=== PATIENT | female | born 1995 | race Caucasian/White ===

== ENCOUNTER 2018-07-30 11:19 | Inpatient (IN) | payer BC, OTHER ==
[2018-07-30] MEDS ORDERED: TUBERCULIN PPD 5 TU/0.1ML SYRINGE (IN PATIENT USE ONLY) ID ONE ×2 (11:58→12:00)
[2018-07-30] MEDS ORDERED: AMPICILLIN - 2 GM in SODIUM CHLORIDE 100 ML IVPB ONE (12:00)
[2018-07-30 12:09] VITALS: BMI 30.1
[2018-07-30] MEDS ORDERED: BUTORPHANOL TARTRATE 1 MG/ML VIAL ONE ×2 (12:43)
[2018-07-30] MEDS ORDERED: PROMETHAZINE HCL 25 MG/1 ML VIAL ONE (12:43)
[2018-07-30 13:00] LABS: BASO % 0.2 % (0-2.0); EOS % 0.3 % (0-4.5); HEMATOCRIT 37.6 % (32.4-45.2); HEMOGLOBIN 11.9 GM/dL (10.7-15.3); LYMPH % 11.7 % (8-40); MCH 27.7 pg (25.7-33.7); MCHC 31.6 g/dl (32.0-36.0); MEAN CELL VOLUME 87.4 fl (80-96); MEAN PLT VOLUME 8.8 fl (7.5-11.1); MONO % 7.1 % (3.8-10.2); NEUT % 80.7 % (42.8-82.8); PLATELET COUNT 242 K/MM3 (134-434); RDW 14.9 % (11.6-15.6); WHITE BLOOD COUNT 12.2 K/mm3 (4.0-10.0)
[2018-07-30] MEDS ORDERED: BUTORPHANOL TARTRATE 1 MG/ML VIAL IVPB ONE (13:00)
[2018-07-30] MEDS ORDERED: PROMETHAZINE HCL 25 MG/1 ML VIAL IVPB ONE (13:00)
[2018-07-30 13:11] LABS: INR 0.93 (0.83-1.09)
[2018-07-30 13:14] LABS: ACTIVATED PTT 29.3 SECONDS (25.2-36.5)
[2018-07-30 13:32] LABS: ANION GAP 9 MMOL/L (8-16); BLOOD UREA NITROGEN 6 mg/dL (7-18); CALCIUM 8.7 mg/dL (8.5-10.1); CHLORIDE 102 mmol/L (98-107); CO2 25 mmol/L (21-32); CREATININE 0.6 mg/dL (0.55-1.3); GLUCOSE,RANDOM 75 mg/dL (74-106); POTASSIUM 3.9 mmol/L (3.5-5.1); SODIUM 137 mmol/L (136-145)
[2018-07-30] MEDS ORDERED: OXYTOCIN 20 UNITS in 0.9% NS 20 UNIT/1,000 ML INFUS.BAG IV ONE ×2 (14:21→17:29)
[2018-07-30] MEDS ORDERED: FENTANYL/BUPIVACAINE/NS/PF - PCEA - 50 ML DISP.SYRIN EP ONE (14:38)
[2018-07-30] MEDS ORDERED: BUPIVACAINE HCL/PF 0.25% (2.5MG/ML) 10 ML VIAL ONE (14:49)
[2018-07-30] MEDS ORDERED: NALOXONE HCL 0.4 MG/ML VIAL IVPUSH PRN (15:12)
--- NOTE | 2018-07-30 15:14 | PN ---
Progress Note (short form) - Note Progress Note: 215 pm cx 6 cm, 100 vx -2 , mi bulging, fhr cat 1, irregular contraction, arom, clear pitocin discussed, rba explained
[2018-07-30] MEDS ORDERED: ELECTROLYTE-148 SOLN 1,000 ML IV SCH (15:15)
[2018-07-30] MEDS ORDERED: FENTANYL/BUPIVACAINE/NS/PF - PCEA - 50 ML DISP.SYRIN EP SCH (15:15)
[2018-07-30] MEDS ORDERED: OXYTOCIN 30 UNITS in 0.9% NS 30 UNIT/500 ML INFUS.BAG IVPB SCH (15:15)
[2018-07-30] MEDS ORDERED: AMPICILLIN SODIUM 1 GM VIAL ONE ×2 (15:52)
[2018-07-30] MEDS ORDERED: AMPICILLIN - 1 GM in SODIUM CHLORIDE 100 ML IVPB SCH (16:00)
--- NOTE | 2018-07-30 16:33 | HP ---
Past Medical History - Primary Care Physician PCP:: Neville Bullard - Admission Chief Complaint: 39 weeks, labor History of Present Illness: 23 yo f 39 weeks in labor , cx 4cm, 80 vx -2 mi, fhr cat 1. irregular contraction, GBS positve History Source: Patient Limitations to Obtaining History: No Limitations - Past Medical History ...: 1 ...LMP: 10/29/17 ... Weeks Gestation by Dates: 39.1 ...EDC by Dates: 08/05/18 - Past Surgical History Hx Myomectomy: No Hx Transabdominal Cerclage: No - Smoking History Smoking history: Never smoked Have you smoked in the past 12 months: No - Alcohol/Substance Use Hx Alcohol Use: No - Social History Usual Living Arrangement: Yes: With Spouse History of Recent Travel: No Home Medications - Allergies Allergies/Adverse Reactions: Allergies Allergy/AdvReac Type Severity Reaction Status Date / Time No Known Allergies Allergy Verified 07/30/18 12:14 - Home Medications Home Medications: Ambulatory Orders Prenat 115/Iron Fum/Folic/Dss [ 19 Tablet] 1 tab PO DAILY 07/29/18 Review of Systems - Review of Systems Constitutional: reports: No Symptoms Eyes: reports: No Symptoms HENT: reports: No Symptoms Neck: reports: No Symptoms Cardiovascular: reports: No Symptoms Respiratory: reports: No Symptoms Gastrointestinal: reports: No Symptoms Genitourinary: reports: No Symptoms Breasts: reports: No Symptoms Reported Musculoskeletal: reports: No Symptoms Integumentary: reports: No Symptoms Neurological: reports: No Symptoms Endocrine: reports: No Symptoms Hematology/Lymphatic: reports: No Symptoms Psychiatric: reports: No Symptoms Physical Exam - Maternity Vital Signs: Vital Signs Temperature 98.4 F 07/30/18 16:00 Pulse Rate 62 07/30/18 16:00 Respiratory Rate 18 07/30/18 16:00 Blood Pressure 99/56 L 07/30/18 16:00 O2 Sat by Pulse Oximetry (%) 99 07/30/18 15:15 Constitutional: Yes: Well Nourished, No Distress, Calm Eyes: Yes: WNL, Conjunctiva Clear, EOM Intact HENT: Yes: WNL, Atraumatic, Normocephalic Neck: Yes: WNL, Supple, Trachea Midline Cardiovascular: Yes: WNL, Regular Rate and Rhythm Breast(s): Yes: WNL - Abdominal Exam/OB Fundal Height: 40 Number of Fetuses: Single Presentation: Vertex Contractions: Yes Regularity: Irregular Intensity: Mod/Strong Monitor Mode: External Heart Rate Location: [facility] Category: I Accelerations: Uniform Decelerations: None - Vaginal Exam/OB Vaginal Bleediing: No Speculum Exam: No Dilatation (cm): 4 cm Effacement (%): 80 Amniotic Membrane Status: Bulging Presentation: Vertex/Position Station: -2 - Physical Exam Musculoskeletal: Yes: WNL Extremities: Yes: WNL Edema: Yes Edema: LLE: Trace, RLE: Trace Deep Tendon Reflex Grade: Normal +2 ...Motor Strength: WNL Psychiatric: Yes: WNL - Labs Lab Results: CBC, BMP 07/30/18 12:35 07/30/18 12:35 Hemorrhage Risk Assessment - Risk Factors Medium Risk Factors: Yes: None High Risk Factors: Yes: None Risk Score: 1 Risk Level: Medium Risk Problem List - Problems (1) 39 weeks gestation of Code(s): Z3A.39 - 39 WEEKS GESTATION OF (2) Labor established Code(s): URL9214 - Assessment/Plan admit , fhm, pain management
[2018-07-30] MEDS ORDERED: LIDOCAINE HCL 1% PRESERVATIVE FREE - 30ML VIAL ONE (17:37)
[2018-07-30] MEDS ORDERED: BENZOCAINE 28 GM HEMORRHOIDAL OINTMENT TP PRN (18:19)
[2018-07-30] MEDS ORDERED: BISACODYL 10 MG SUPP.RECT RC PRN (18:19)
[2018-07-30] MEDS ORDERED: WITCH HAZEL 50% (TUCKS) 40 PAD/JAR PAD TP PRN (18:19)
[2018-07-30] MEDS ORDERED: METHYLERGONOVINE MALEATE 0.2 MG/1 ML AMP IM PRN (18:19)
[2018-07-30] MEDS ORDERED: OXYTOCIN 20 UNITS in 0.9% NS 20 UNIT/1,000 ML INFUS.BAG IV SCH (18:30)
[2018-07-30] MEDS ORDERED: D5W-LR W/ 20 UNITS OXYTOCIN 1,000 ML IV SCH (18:30)
[2018-07-31] MEDS: FERROUS SO4 325 MG TABLET (FP) PO SCH ×2 (08:25→17:20)
[2018-07-31 08:27] LABS: BASO % 0.3 % (0-2.0); EOS % 0.6 % (0-4.5); HEMOGLOBIN 10.8 GM/dL (10.7-15.3); LYMPH % 12.4 % (8-40); MCH 27.8 pg (25.7-33.7); MCHC 31.8 g/dl (32.0-36.0); MEAN CELL VOLUME 87.4 fl (80-96); MEAN PLT VOLUME 8.9 fl (7.5-11.1); NEUT % 78.7 % (42.8-82.8); PLATELET COUNT 214 K/MM3 (134-434); RBC 3.89 M/mm3 (3.60-5.2); RDW 14.7 % (11.6-15.6); WHITE BLOOD COUNT 14.2 K/mm3 (4.0-10.0)
[2018-07-31] MEDS: PRENATAL VITAMINS W/ FOLIC ACID TABLET (FP) PO SCH (09:15)
[2018-07-31] MEDS: BENZOCAINE 20% 57 GM BOTTLE TP PRN (09:16)
[2018-07-31] MEDS: IBUPROFEN 600 MG TABLET (FP) PO PRN ×3 (10:11→23:03)
[2018-07-31] MEDS: ACETAMINOPHEN 325 MG TABLET (FP) PO PRN ×3 (10:12→23:02)
--- NOTE | 2018-07-31 11:16 | PN ---
Progress Note (short form) - Note Progress Note: ppd 1 doing well, ambulating, no excess vaginal bleeding CBC, BMP 07/31/18 07:00 07/30/18 12:35 Last Vital Signs Temp Pulse Resp BP Pulse Ox 98.7 F 89 18 116/70 99 07/31/18 06:00 07/31/18 06:00 07/31/18 06:00 07/31/18 06:00 07/30/18 17:30 abdomen soft, non tender , no cva uterus firm, non tender lochia mild no calf tenderness plan ambulate , plan for d/c home in am Problem List - Problems (1) 39 weeks gestation of Code(s): Z3A.39 - 39 WEEKS GESTATION OF (2) Labor established Code(s): XML5262 -
[2018-07-31] MEDS ORDERED: SENNOSIDES/DOCUSATE COMBO (SENNA PLUS) TABLET (UD) PO PRN (22:00)
[2018-08-01] MEDS: FERROUS SO4 325 MG TABLET (FP) PO SCH (07:56)
[2018-08-01 08:49] VITALS: BP 112/54; PULSE 66; TEMP 98.4
[2018-08-01] MEDS: PRENATAL VITAMINS W/ FOLIC ACID TABLET (FP) PO SCH (09:15)
[2018-08-01] MEDS: BENZOCAINE 20% 57 GM BOTTLE TP PRN (10:52)
--- NOTE | 2018-08-01 12:39 | PN ---
Post Progress Note - Subjective Subjective: No complains Post Day: 1 Type of Delivery: Vital Signs: Vital Signs Temperature 98.4 F 08/01/18 08:47 Pulse Rate 66 08/01/18 08:47 Respiratory Rate 20 08/01/18 08:47 Blood Pressure 112/54 L 08/01/18 08:47 O2 Sat by Pulse Oximetry (%) 99 07/30/18 17:30 Breast Exam: Yes: Soft Uterus: Yes: Fundus Firm Abdomen/GI: Yes: Abdomen soft, Passing flatus Lochia: Yes: Rubra Lochia, amount: Small Extremities: Yes: Calves non-tender Perineum: Yes: Laceration Activity: Ambulating - Labs Labs: CBC WBC 14.2 K/mm3 (4.0-10.0) H 07/31/18 07:00 RBC 3.89 M/mm3 (3.60-5.2) 07/31/18 07:00 Hgb 10.8 GM/dL (10.7-15.3) 07/31/18 07:00 Hct 34.0 % (32.4-45.2) 07/31/18 07:00 MCV 87.4 fl (80-96) 07/31/18 07:00 MCH 27.8 pg (25.7-33.7) 07/31/18 07:00 MCHC 31.8 g/dl (32.0-36.0) L 07/31/18 07:00 RDW 14.7 % (11.6-15.6) 07/31/18 07:00 Plt Count 214 K/MM3 (134-434) 07/31/18 07:00 MPV 8.9 fl (7.5-11.1) 07/31/18 07:00 Absolute Neuts (auto) 11.1 K/mm3 (1.5-8.0) H 07/31/18 07:00 Neutrophils % 78.7 % (42.8-82.8) 07/31/18 07:00 Lymphocytes % 12.4 % (8-40) 07/31/18 07:00 Monocytes % 8.0 % (3.8-10.2) 07/31/18 07:00 Eosinophils % 0.6 % (0-4.5) D 07/31/18 07:00 Basophils % 0.3 % (0-2.0) 07/31/18 07:00 Nucleated RBC % 0 % (0-0) 07/31/18 07:00 Assessment/Plan 23yo P1 s/p PPD # 2 1. Doing well 2. VSS, Afebrile, no evidance of acute blood loss 3. Rh positive status, no rhogam indicated. 4. Encourage ambulation 5. Continue oral pain medication 6. Discharge home today 7. Instructed on Pelvic rest for 6weeks 8. Return to office in 4-6 weeks
[2018-08-01 13:51] LABS: BASO % 0.2 % (0-2.0); EOS % 1.5 % (0-4.5); HEMATOCRIT 33.1 % (32.4-45.2); HEMOGLOBIN 11.5 GM/dL (10.7-15.3); MCH 29.9 pg (25.7-33.7); MCHC 34.7 g/dl (32.0-36.0); MEAN CELL VOLUME 86.3 fl (80-96); MEAN PLT VOLUME 9.4 fl (7.5-11.1); MONO % 5.8 % (3.8-10.2); NEUT % 72.5 % (42.8-82.8); PLATELET COUNT 240 K/MM3 (134-434); RBC 3.83 M/mm3 (3.60-5.2); RDW 14.8 % (11.6-15.6); WHITE BLOOD COUNT 11.5 K/mm3 (4.0-10.0)
--- NOTE | 2018-08-01 20:14 | DS ---
Physical Exam-[facility] Vital Signs: Vital Signs Temperature 98.4 F 08/01/18 08:20 Pulse Rate 66 08/01/18 08:20 Respiratory Rate 20 08/01/18 08:20 Blood Pressure 112/54 L 08/01/18 08:20 O2 Sat by Pulse Oximetry (%) 99 07/30/18 17:30 Constitutional: Yes: Well Nourished, No Distress, Calm Eyes: Yes: WNL, Conjunctiva Clear, EOM Intact HENT: Yes: WNL, Atraumatic, Normocephalic Neck: Yes: WNL, Supple, Trachea Midline Cardiovascular: Yes: WNL, Regular Rate and Rhythm Respiratory: Yes: WNL, Regular, CTA Bilaterally Gastrointestinal: Yes: WNL, Normal Bowel Sounds, Soft Pelvis: Yes: WNL External Genitalia: Yes: Normal Vaginal Exam: Yes: Normal ....Post : Yes: Uterus firm, Uterus non-tender Breast(s): Yes: WNL Musculoskeletal: Yes: WNL Extremities: Yes: WNL Integumentary: Yes: WNL Wound/Incision: Yes: Clean/Dry, Well Approximated Neurological: Yes: WNL, Alert, Oriented ...Motor Strength: WNL Psychiatric: Yes: WNL, Alert, Oriented Labs: CBC, BMP 08/01/18 12:35 07/30/18 12:35 Delivery - Delivery Type of Anesthesia: Epidural Episiotomy/Laceration: Perineal Extension/lac, 1st degree EBL (cc): 300 Delivery, Single - Stages of Labor Date 1st Stage Initiatied: 07/30/18 Time 1st Stage Initiated: 04:00 Date 2nd Stage Initiated: 07/30/18 Time 2nd Stage Initiated: 17:30 Date of Delivery: 07/30/18 Time of Delivery: 17:58 Time Placenta Delivered: 18:05 - Condition of Infant Clinical Trial Specialist/Material Handling Technician Present: No Gender: Female Weight: 7 lb 2 oz Total Hours ROM (Hrs/Mins): 3h47m - 1 Minute Total Score: 9 5 Minutes Total Score: 9 - [place] Feeding Plan Initial Plan: Elected not to breastfeed exclusively throughout hospitalization Discharge Summary Reason For Visit: LABOR ADMISSION Condition: Good - Instructions Diet, Activity, Other Instructions: Physical activity Resume your normal everyday activity as tolerated no heavy lifting or exercise until seen by your surgeon. You may walk unlimited berhane of and climb stairs. You may resume driving the car when you feel safe and comfortable behind the wheel. No sexual activity as instructed. Wound care If you have a bandage, leave it on, and keep dry for 48-72 hours. After that time discard the outer bandage. If they are tapes on the skin under the out of bandage leave them in place. They will peel off in the next 7 to 10 days. Do Not Peel them off. You may shower the day after surgery. If there are tapes present on the skin, you may shower over them. Diet There are no dietary restrictions. Eat healthy, high-fiber foods. Drink 6 to 8 glasses of liquid each day. This will assist in keeping your bowels are regular. Pain management You may take Tylenol or acetaminophen or Ibuprofen (for example, Motrin, Advil etc.) from my pain prescription medication is ordered should be taken as prescribed for moderate to severe pain. Call MD for any of the following: Severe pain not relieved by medication Fever of 101 or higher Excessive bleeding or drainage on dressing Inability to urinate Call Dr. Bullard's office and make appt. to be seen in 4 to 6 weeks. Referrals: Neville Bullard MD [Staff Physician] - Disposition: HOME - Home Medications Comprehensive Discharge Medication List: Ambulatory Orders Prenat 115/Iron Fum/Folic/Dss [ 19 Tablet] 1 tab PO DAILY 07/29/18 Ibuprofen [Motrin -] 600 mg PO TID #21 tablet 08/01/18
== END 2018-08-01 14:50 | disposition home or self-care (01) | DRG 807 ==
LOC: JDEL 11:19 → JLDR 11:47 → J3W 20:00
PROVIDERS: ADMIT Obstetrics & Gynecology; ATTEND Obstetrics & Gynecology
PROC: 10E0XZZ Delivery of Products of Conception, External Approach (ICD-10-PCS; principal; 2018-07-30)
PROC: 0HQ9XZZ Repair Perineum Skin, External Approach (ICD-10-PCS; 2018-07-30)
DX: O70.0 First degree perineal laceration during delivery (principal); Z37.0 Single live birth; Z3A.39 39 weeks gestation of pregnancy
CPT/HCPCS: 36415; 59409; 80048; 85025; 85610; 85730; 86593; 86850; 86900; 86901